=== PATIENT | male | born 1985 | race Hispanic/Latino ===

== ENCOUNTER 2022-07-12 18:09 | Emergency (ER) | payer BC ==
[~2022-07-12] VITALS: Ht 175.3 cm; Wt 68.0 kg
== END 2022-07-12 18:46 | disposition home or self-care (01) ==
LOC: ER 18:12
DX: Z48.01 Encounter for change or removal of surgical wound dressing (principal)
CPT/HCPCS: 99281

== ENCOUNTER → 2022-07-18 | Outpatient (CLI) | payer BC | LOC: WCC 09:22 | PROVIDERS: ATTEND Family Medicine Adult Medicine | DX: S71.101A Unspecified open wound, right thigh, initial encounter (principal); S81.802A Unspecified open wound, left lower leg, initial encounter; R60.0 Localized edema; L23.1 Allergic contact dermatitis due to adhesives; X58.XXXA Exposure to other specified factors, initial encounter | CPT/HCPCS: 87071; 87075; 87205 ==

== ENCOUNTER → 2022-07-21 | Outpatient (CLI) | payer BC | LOC: RAD 08:42 | PROVIDERS: ATTEND Family Medicine Adult Medicine | DX: S81.802A Unspecified open wound, left lower leg, initial encounter (principal) | CPT/HCPCS: 93971 ==

== ENCOUNTER → 2022-07-25 | Outpatient (CLI) | payer BC ==
[2022-07-25 14:40] LABS: BASOPHILS % 0.5 % (0.0-1.0); EOSINOPHILS # (AUTO) 0.1 (0.0-0.4); EOSINOPHILS % 2.2 % (0.0-6.0); HEMATOCRIT 44.2 % (38.2-49.6); HEMOGLOBIN 14.9 g/dL (14.0-18.0); LYMPHOCYTES # (AUTO) 2.3 (1.0-3.2); LYMPHOCYTES % 36.6 % (18.0-39.1); MEAN CORPUSCULAR HEMOGLOBIN 31.4 pg (28-32); MEAN CORPUSCULAR HGB CONC 33.7 g/dL (31-35); MEAN CORPUSCULAR VOLUME 93.2 fL (81-99); MONOCYTES # (AUTO) 0.5 (0.2-0.8); NEUTROPHILS # (AUTO) 3.3 (2.1-6.9); NEUTROPHILS % 52.2 % (38.7-80.0); PLATELET COUNT 304 x10e3/uL (140-360); RED BLOOD COUNT 4.74 x10e6/uL (4.3-5.7); RED CELL DISTRIBUTION WIDTH 12.1 % (11.7-14.4)
[2022-07-25 14:51] LABS: ANION GAP 15.7 mmol/L (8-16); CALCIUM 9.7 mg/dL (8.4-10.2); CREATININE, SERUM 0.79 mg/dL (0.72-1.25); POTASSIUM 3.7 mmol/L (3.5-5.1)
[2022-07-25 14:52] LABS: ALBUMIN 4.5 g/dL (3.5-5.0); ALBUMIN/GLOBULIN RATIO 1.5 (0.8-2.0)
== END ==
LOC: WCC 13:57
PROVIDERS: ATTEND Family Medicine Adult Medicine
DX: S81.802A Unspecified open wound, left lower leg, initial encounter (principal); S71.101A Unspecified open wound, right thigh, initial encounter; R60.0 Localized edema; L23.1 Allergic contact dermatitis due to adhesives; X58.XXXA Exposure to other specified factors, initial encounter
CPT/HCPCS: 36415; 80053; 83036; 84134; 85025

== ENCOUNTER → 2022-07-31 | Outpatient (CLI) | payer BC | LOC: WCC 14:44 | PROVIDERS: ATTEND Family Medicine Adult Medicine | DX: S81.802A Unspecified open wound, left lower leg, initial encounter (principal); S71.101A Unspecified open wound, right thigh, initial encounter; R60.0 Localized edema; X58.XXXA Exposure to other specified factors, initial encounter ==

== ENCOUNTER → 2022-08-01 | Outpatient (CLI) | payer BC | LOC: WCC 13:33 | PROVIDERS: ATTEND Family Medicine Adult Medicine | DX: S71.101A Unspecified open wound, right thigh, initial encounter (principal); S81.802A Unspecified open wound, left lower leg, initial encounter; R60.0 Localized edema; X58.XXXA Exposure to other specified factors, initial encounter ==

== ENCOUNTER → 2022-08-04 | Outpatient (CLI) | payer BC | LOC: WCC 14:26 | PROVIDERS: ATTEND Family Medicine Adult Medicine | DX: S71.101A Unspecified open wound, right thigh, initial encounter (principal); S81.802A Unspecified open wound, left lower leg, initial encounter; R60.0 Localized edema; X58.XXXA Exposure to other specified factors, initial encounter ==

== ENCOUNTER → 2022-08-10 | Outpatient (CLI) | payer BC | LOC: WCC 12:53 | PROVIDERS: ATTEND Family Medicine Adult Medicine | DX: S81.802A Unspecified open wound, left lower leg, initial encounter (principal); S71.101A Unspecified open wound, right thigh, initial encounter; R60.0 Localized edema; X58.XXXA Exposure to other specified factors, initial encounter ==

== ENCOUNTER → 2022-08-15 | Outpatient (CLI) | payer BC ==
[~2022-08-15] MED LIST: LIDOCAINE VISC 2% SOLN 15 ML UDC ONE; MUPIROCIN 2% OINT 22 GM TUBE ONE
== END ==
LOC: WCC 14:34
PROVIDERS: ATTEND Family Medicine Adult Medicine
DX: S81.802A Unspecified open wound, left lower leg, initial encounter (principal); R60.0 Localized edema; X58.XXXA Exposure to other specified factors, initial encounter

== ENCOUNTER → 2022-08-22 | Outpatient (CLI) | payer BC | LOC: WCC 13:38 | PROVIDERS: ATTEND Family Medicine Adult Medicine | DX: S81.802A Unspecified open wound, left lower leg, initial encounter (principal); R60.0 Localized edema; S80.822A Blister (nonthermal), left lower leg, initial encounter; L23.1 Allergic contact dermatitis due to adhesives; X58.XXXA Exposure to other specified factors, initial encounter ==

== ENCOUNTER → 2022-08-25 | Outpatient (CLI) | payer BC | LOC: WCC 14:27 | PROVIDERS: ATTEND Family Medicine Adult Medicine | DX: S81.802A Unspecified open wound, left lower leg, initial encounter (principal); S80.822A Blister (nonthermal), left lower leg, initial encounter; R60.0 Localized edema; L23.1 Allergic contact dermatitis due to adhesives; X58.XXXA Exposure to other specified factors, initial encounter ==

== ENCOUNTER → 2022-08-29 | Outpatient (CLI) | payer BC | LOC: WCC 13:46 | PROVIDERS: ATTEND Family Medicine Adult Medicine | DX: S81.802A Unspecified open wound, left lower leg, initial encounter (principal); R60.0 Localized edema; S80.822A Blister (nonthermal), left lower leg, initial encounter; L23.1 Allergic contact dermatitis due to adhesives; X58.XXXA Exposure to other specified factors, initial encounter ==

== ENCOUNTER → 2022-09-01 | Outpatient (CLI) | payer BC | LOC: WCC 14:29 | PROVIDERS: ATTEND Family Medicine Adult Medicine | DX: S81.802A Unspecified open wound, left lower leg, initial encounter (principal); S80.822A Blister (nonthermal), left lower leg, initial encounter; R60.0 Localized edema; X58.XXXA Exposure to other specified factors, initial encounter ==

== ENCOUNTER → 2022-09-05 | Outpatient (CLI) | payer BC | LOC: WCC 14:38 | PROVIDERS: ATTEND Podiatrist Foot & Ankle Surgery | DX: S81.802A Unspecified open wound, left lower leg, initial encounter (principal); R60.0 Localized edema; S80.822A Blister (nonthermal), left lower leg, initial encounter; X58.XXXA Exposure to other specified factors, initial encounter ==

== ENCOUNTER → 2022-09-08 | Outpatient (CLI) | payer BC | LOC: WCC 14:36 | PROVIDERS: ATTEND Family Medicine Adult Medicine | DX: S81.802A Unspecified open wound, left lower leg, initial encounter (principal); R60.0 Localized edema; X58.XXXA Exposure to other specified factors, initial encounter ==

== ENCOUNTER → 2022-09-12 | Outpatient (CLI) | payer BC ==
[~2022-09-12] MED LIST changes: -MUPIROCIN 2% OINT 22 GM TUBE ONE; +TRIAMCINOLONE ACET 0.1% CREAM 15 GM TUBE ONE
== END ==
LOC: WCC 12:50
PROVIDERS: ATTEND Family Medicine Adult Medicine
DX: S81.802A Unspecified open wound, left lower leg, initial encounter (principal); R60.0 Localized edema; X58.XXXA Exposure to other specified factors, initial encounter

== ENCOUNTER → 2022-09-19 | Outpatient (CLI) | payer BC | LOC: WCC 13:46 | PROVIDERS: ATTEND Family Medicine Adult Medicine | DX: S81.802A Unspecified open wound, left lower leg, initial encounter (principal); X58.XXXA Exposure to other specified factors, initial encounter; R60.0 Localized edema ==

== ENCOUNTER → 2022-09-26 | Outpatient (CLI) | payer BC | LOC: WCC 12:35 | PROVIDERS: ATTEND Family Medicine Adult Medicine | DX: S81.802A Unspecified open wound, left lower leg, initial encounter (principal); R60.0 Localized edema; X58.XXXA Exposure to other specified factors, initial encounter ==

== ENCOUNTER → 2022-10-17 | Outpatient (CLI) | payer BC | LOC: WCC 15:05 | PROVIDERS: ATTEND Family Medicine Adult Medicine | DX: S81.802A Unspecified open wound, left lower leg, initial encounter (principal); X58.XXXA Exposure to other specified factors, initial encounter ==